=== PATIENT | female | born 1990 | race Caucasian/White ===

== ENCOUNTER 2017-10-11 22:38 | Outpatient (CLI) | payer SELFPAY ==
[2017-10-11 23:00] VITALS: BP 115/63
== END 2017-10-11 22:50 | disposition home or self-care (01) ==
LOC: LDOP 22:38
PROVIDERS: ATTEND Obstetrics & Gynecology
DX: O26.892 Other specified pregnancy related conditions, second trimester (principal); Z3A.18 18 weeks gestation of pregnancy
CPT/HCPCS: 59025; 99201; G0463